=== PATIENT | male | born 1985 | race Caucasian/White ===

== ENCOUNTER 2019-04-06 13:49 | Emergency (ER) | payer MEDICAID ==
[~2019-04-06] VITALS: Ht 193 cm; Wt 189.0 kg
[~2019-04-06 13:49] MED LIST: HYDR-4383 PO
[2019-04-06] MEDS ORDERED: ibuprofen tablet 400 MG TABLET PO ONE (15:25)
[2019-04-06] MEDS ORDERED: BUPIVAcaine/PF 2.5mg/ml (0.25%) 10ml vial IJ ONE (16:00)
[2019-04-06] MEDS ORDERED: BUPIVAcaine/PF 2.5 mg/ml (0.25%) 30ml vial IJ ONE (16:00)
[2019-04-06] MEDS ORDERED: amox tr/potassium clavulanate 875/125mg TAB PO ONE (16:30)
[2019-04-06] MEDS ORDERED: AMOX-580 PO (16:30)
[2019-04-06] MEDS ORDERED: ACET-2119 PO (16:32)
[2019-04-06] MEDS ORDERED: IBUP-1985 PO (16:32)
[2019-04-06 16:55] VITALS: BP 148/98
== END 2019-04-06 16:55 | disposition home or self-care (01) ==
LOC: ER 13:49
DX: K04.7 Periapical abscess without sinus (principal); Z79.899 Other long term (current) drug therapy
CPT/HCPCS: 41800; 99283; J3490

== ENCOUNTER 2020-04-23 03:09 | Emergency (ER) | payer MEDICAID ==
[~2020-04-23] VITALS: Ht 193 cm; Wt 190.0 kg
[~2020-04-23 03:09] MED LIST changes: +IBUP-1985 PO
[2020-04-23 03:12] VITALS: BP 161/105
[2020-04-23] MEDS ORDERED: acetaminophen 325mg tablet PO ONE (03:40)
[2020-04-23] MEDS ORDERED: ibuprofen tablet 400 MG TABLET PO ONE (03:40)
[2020-04-23] MEDS ORDERED: LIDO1ADH67 TOP (04:05)
== END 2020-04-23 04:26 | disposition home or self-care (01) ==
LOC: ER 03:09
DX: M25.511 Pain in right shoulder (principal); J45.909 Unspecified asthma, uncomplicated; F12.90 Cannabis use, unspecified, uncomplicated; Z87.891 Personal history of nicotine dependence; Z72.89 Other problems related to lifestyle; Z79.899 Other long term (current) drug therapy
CPT/HCPCS: 73030; 93005; 99283